=== PATIENT | male | born 1985 | race Caucasian/White ===

== ENCOUNTER 2019-04-08 07:56 | Outpatient (RCR) | payer OTHER | END 2019-04-10 | LOC: PT 07:56 | PROVIDERS: ATTEND Neurological Surgery | DX: M51.16 Intervertebral disc disorders with radiculopathy, lumbar region (principal); M62.81 Muscle weakness (generalized); M53.86 Other specified dorsopathies, lumbar region ==

== ENCOUNTER 2019-05-06 08:00 | Outpatient (RCR) | payer OTHER | END 2019-05-10 | LOC: PT 08:00 | PROVIDERS: ATTEND Neurological Surgery | DX: M51.16 Intervertebral disc disorders with radiculopathy, lumbar region (principal) ==

== ENCOUNTER 2019-05-20 08:00 | Outpatient (RCR) | payer OTHER | END 2019-06-10 | LOC: PT 08:00 | PROVIDERS: ATTEND Neurological Surgery | DX: M51.16 Intervertebral disc disorders with radiculopathy, lumbar region (principal) ==